=== PATIENT | female | born 1935 | race Caucasian/White ===

== ENCOUNTER → 2023-10-08 | Outpatient (CLI) | payer MEDICARE ==
[2023-10-08 11:52] LABS: African American GFR (CKD) >90 (>60 ml/min/1.73 sqM); Blood Urea Nitrogen 22 mg/dL (7-17); Non-African American GFR(CKD) 81 (>60 ml/min/1.73 sqM)
--- NOTE | 2023-10-09 08:39 | CT ---
EXAMINATION TYPE: CT ChestAbdPelvis w con DATE OF EXAM: 10/08/2023 COMPARISON: None HISTORY: brain lesions CT DLP: 1615 mGycm CONTRAST: CT scan of the chest, abdomen and pelvis is performed with Oral Contrast and with IV Contrast, patien t injected with 100 mL of Isovue 300. CT Chest: LUNGS: Spiculated mass right lower lobe medially measuring approximately 3.1 x 2.6 cm suspicious for malignancy. Nodular density left upper lobe measuring 1.1 cm. No additional nodules or masses appreci ated at this time. [id number] centrilobular emphysema. No volume loss or pleural effusion. MEDIASTINUM: Thoracic aorta is of normal caliber. The heart is not enlarged. No evidence for media stinal mass or adenopathy. 1.4 cm left thyroid nodule is nonspecific. HILAR STRUCTURES: No evidence for mass. No hilar adenopathy is appreciated. OTHER: No significant abnormality. CONTRAST CT ABDOMEN AND PELVIS FINDINGS: LIVER/GB: No calcified gallstones. No space occupying hepatic lesion. Biliary tree is of normal ca liber. PANCREAS: No inflammation. No distinct mass. SPLEEN: No splenic enlargement. No lesion seen. ADRENALS: No nodule. No thickening. KIDNEYS/BLADDER: No hydronephrosis. No nephrolithiasis. No disctinct renal mass. BOWEL: Normal appendix. Normal bowel caliber. No inflammation. GENITAL ORGANS: No gross abnormality. LYMPH NODES: No greater than 1cm abdominal or pelvic lymph nodes are appreciated. AORTA: No significant abnormality. OSSEOUS STRUCTURES: No significant abnormality is seen. OTHER: No significant additional abnormality is seen. IMPRESSION: 1. Spiculated mass right lower lobe felt to reflect malignancy until proven otherwise. No adenopathy. Additional left upper lobe pulmonary nodule. Tissue diagnosis and/or PET CT recommended. 2. No evidence for metastatic disease to the abdomen or pelvis at this time.
== END | disposition home or self-care (01) ==
LOC: RADCTMAIN 10:09
PROVIDERS: ATTEND Internal Medicine Hematology & Oncology
DX: R91.1 Solitary pulmonary nodule (principal); R90.0 Intracranial space-occupying lesion found on diagnostic imaging of central nervous system; R91.8 Other nonspecific abnormal finding of lung field
CPT/HCPCS: 82565; 84520; 71260; 74177; 36415; Q9967

== ENCOUNTER → 2023-11-01 | Outpatient (CLI) | payer MEDICARE ==
--- NOTE | 2023-11-09 15:27 | PE ---
EXAMINATION TYPE: PET CT fusion skull to thigh DATE OF EXAM: 11/01/2023 COMPARISON: 10/08/2023 Prior PET/CT: None HISTORY: Pulmonary nodule TECHNIQUE: Following the intravenous administration of 10.9 mCi of F-18 FDG, whole body images are p erformed from the skull base to the midthigh. Images are reviewed on the computer in the coronal, ax ial, and sagittal planes. Reconstructed rotating images are created on independent workstation and r eviewed on the computer. A localization and attenuation correction CT is performed in conjunction w ith the PET scan. DLP: 343.96 mGycm SCAN: Initial Blood glucose: 93 mg/dL Average Mediastinum SUV: 2.37 Average Liver SUV: 3.01 FINDINGS: Head: No abnormal uptake. Radiotracer appears symmetrical. NECK: No abnormal uptake THORAX: There is increased uptake within the posterior left apex density, example image 90, SUV 1.79. This is intermediate in inflammatory changes and neoplasm are within the differential. There is intense uptake within the pretracheal lymph node, image 105, SUV 9.18. Intense uptake is wit hin a subcarinal lymph node, image 111, SUV 9.33. A right hilar lymph node is present posteriorly, im age 120, SUV 6.64. A retrocrural lymph node has intense uptake measuring 7.23 SUV, image 145. There is a subcutaneous nodule within the lateral right chest wall, image 126, SUV 4.34. The mass in the posterior medial right lung base, example image 146, has an SUV of 13.05. ABDOMEN: No abnormal uptake within the soft tissues PELVIS: No abnormal uptake within soft tissues OSSEOUS STRUCTURES: There is intense uptake along the right lateral rib, image 121, SUV 10.78. There is uptake within the lateral right iliac wing. Image 199, SUV 12.[address]: Enlarged mediastinal adenopathy is evident in the pretracheal space. Coronary artery calcification is noted. There is a mass in the posterior medial right lung measuring 3.2 x 2.2. Seri es 3 image 148. Posterior left lung nodule measures 1.4 x 0.8 cm. Series 3 image 90. COMPARISON: Areas of uptake correlate with findings on CT. IMPRESSION: 1. Uptake within the posterior medial right lung base mass suspicious for primary neoplasm. 2. Multiple mediastinal lymph nodes in the pretracheal subcarinal and right hilar regions suspicious for metastatic disease. 3. Subcutaneous tissue nodule lateral right chest wall may be an additional metastatic lesion. 4. 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
== END | disposition home or self-care (01) ==
LOC: RADPETMAIN 11:23
PROVIDERS: ATTEND Internal Medicine Hematology & Oncology
DX: C79.51 Secondary malignant neoplasm of bone (principal); R91.8 Other nonspecific abnormal finding of lung field
CPT/HCPCS: 78815; A9552